=== PATIENT | female | born 1985 | race African-American/Black ===

== ENCOUNTER 2021-02-01 01:46 | Emergency (ER) | payer OTHER, SELFPAY ==
[2021-02-01 01:55] VITALS: BP 137/83; PULSE 76; RESP 17; TEMP 37; O2SAT 100; BMI 38.2
--- NOTE | 2021-02-01 04:29 | ED_ITS ---
HPI - Headache General Chief Complaint: Headache Stated Complaint: headach/nausea since infusion yesterday Time Seen by Provider: 02/01/21 04:20 Mode of arrival: Ambulatory Limitations: no limitations History of Present Illness HPI Narrative: This is a 35-year-old female comes emergency department with complaint headache some nausea and left hand pain starting after iron infusion yesterday. Patient states she typically gets a headache after her iron infusions and takes ibuprofen and they resolve but this 1 has been persistent. She has not had vomiting but has had some mild nausea. She has had some discomfort in the back side of her hand she states there was a small bubble immediately afterward but has resolved. She has not appreciated any increased swelling in her upper extremity since then. Patient has not had any fevers or chills. No cold cough or congestion. She does feel a bit achy in her chest but denies any generalized body aches or bone pain. Patient has had any changes today bowel movements such as diarrhea constipation. No urinary symptoms. No rashes or skin changes. No fevers. Patient states she is on oral contraceptives for heavy periods. She states she is receiving iron infusions for chronic anemia she was on oral iron supplementation but was not improving fast enough secondary to her being at 89 ir and being in the [place] they 1 improvement. Patient has had 4 or 5 infusions total. Related Data Home Medications Medication Instructions Recorded Confirmed ferrous sulfate 325 mg (65 mg 325 mg PO Q OTHER DAY 01/04/21 01/04/21 iron) capsule,extended release fluoride (sodium) 1.1 % dental gel 1 ea DAILY 01/04/21 01/04/21 (PreviDent) norethindrone acetate 1.5 1 tab PO DAILY 01/04/21 01/04/21 mg-ethinyl estradiol 30 mcg tablet (Loestrin) Allergies Allergy/AdvReac Type Severity Reaction Status Date / Time pseudoephedrine Allergy Unknown Palpitation Verified 01/04/21 11:18 [From Jo] s avocado AdvReac Unknown Photosensit Verified 01/04/21 11:21 ivity Review of Systems Review of Systems ROS Unobtainable: All systems reviewed & are unremarkable except as noted in HPI and below Patient History Social History Smoking Status: Current every day smoker Smoking Status: Current every day smoker alcohol intake frequency: a few times a week Substance Use Type: does not use Exam Narrative Exam Narrative: GENERAL: Alert and oriented x three, female in mild distress. HEENT: Head normocephalic, atraumatic, EOMI, pupils reactive, face symmetric, moist mucous membranes NECK: Supple, full range of motion CARDIOVASCULAR: Regular rate and rhythm without murmurs, rubs or gallops. RESPIRATORY: Breath sounds equal bilaterally, no wheezes rales or rhonchi. ABDOMEN: Soft, nontender. Normoactive bowel sounds all 4 quadrants. No guarding or rebound, rigidity, no mass : No CVA tenderness EXTREMITIES: Normal range of motion, no clubbing or edema. Neurovascularly inta ct. No warmth, erythema or swelling. NEUROLOGICAL: Cranial nerves II through XII grossly intact. Moving all extremities SKIN: Warm, dry, no petechiae, no rashes or lesions. Initial Vital Signs Initial Vital Signs: Vital Signs Temperature 98.6 F 02/01/21 01:55 Pulse Rate 76 02/01/21 01:55 Respiratory Rate 17 02/01/21 01:55 Blood Pressure 137/83 02/01/21 01:55 Pulse Oximetry 100 02/01/21 01:55 Course Orders Ordered: Discontinued Medications Ketorolac Tromethamine (Ketorolac 30 Mg/Ml Vial) 30 mg IM NOW ONE Stop: 02/01/21 04:48 Last Admin: 02/01/21 04:56 Dose: 30 mg Documented by: JEREMY Ondansetron HCl (Ondansetron 4 Mg Odt) 4 mg SL NOW ONE Stop: 02/01/21 04:48 Last Admin: 02/01/21 04:56 Dose: 4 mg Documented by: JEREMY Ondansetron HCl (Ondansetron 4 Mg Odt Prepack) 1 bottle MISC SEEINSTR ONE Stop: 02/01/21 05:31 Last Admin: 02/01/21 05:34 Dose: 1 bottle Documented by: JEREMY Vital Signs Vital signs: Vital Signs - 8 hr 02/01/21 01:55 02/01/21 05:52 Temperature 98.6 F Pulse Rate 76 66 Respiratory Rate 17 16 Blood Pressure 137/83 108/65 Pulse Oximetry 100 100 MDM - Headache MDM Narrative Medical decision making narrative: This is a 35-year-old female who had developed headache, as well some discomfort in her hand and arm and some nausea after her infusion of iron yesterday. She has had persistent symptoms that have not completely resolved. No anaphylactic symptoms. No fever. She has not had generalized muscle aches or bony discomfort. Suspect she is having continued reaction. She is given dose of Toradol and Zofran we did discuss IV fluids and IV access but patient and I discussed she is a difficult stick and at this time with shared decision making she elects to defer. We did discuss if she is feeling much worse having any red flag symptoms are generalized bony pain or ache she does need labs and further workup. Patient feels comfortable with this plan. Discharge Plan Departure Patient Disposition: Home Clinical Impression: Infusion reaction Activity Restrictions/Additional Instructions: Follow-up with your physician. I suspect you have had an iron infusion reaction. You may continue with ibuprofen up to 800 mg every 8 hours and/or Tylenol up to a 1000 mg every 8 hours as needed. You may take Zofran every 6 hours as needed. Please return for fevers, new chest pain, shortness of breath, lightheadedness or passing out, bone pain, persistent vomiting or other new or concerning symptoms. Prescriptions: No Action norethindrone ac-eth estradiol [Loestrin 1.08/14 (21)] 1.5-30 mg-mcg Tablet 1 tab PO DAILY 0RF fluoride (sodium) [PreviDent] 1.1 % Gel 1 ea DAILY 0RF ferrous sulfate 325 mg (65 mg iron) Capsule, Extended Release 325 mg PO Q OTHER DAY 0RF Referrals: [facility] [Primary Care Provider] -
[2021-02-01] MEDS: ONDANSETRON 4 MG ODT SL (04:56)
[2021-02-01] MEDS: KETOROLAC 30 MG/ML VIAL IM (04:56)
[2021-02-01] MEDS: ONDANSETRON 4 MG ODT PREPACK 1 BOTTLE MISC (05:34)
[2021-02-01 05:52] VITALS: BP 108/65; PULSE 66; RESP 16; O2SAT 100
== END 2021-02-01 05:53 | disposition home or self-care (01) ==
PROVIDERS: Emergency Provider Emergency Medicine
DX: T80.89XA Other complications following infusion, transfusion and therapeutic injection, initial encounter (principal); R51.9 Headache, unspecified; R11.0 Nausea; M79.642 Pain in left hand
CPT/HCPCS: 96372; 99283; J1885

== ENCOUNTER 2021-04-20 19:37 | Emergency (ER) | payer OTHER, SELFPAY ==
[2021-04-20 19:50] VITALS: BP 139/88; PULSE 72; RESP 18; TEMP 36.1; O2SAT 100
--- NOTE | 2021-04-20 21:25 | ED.HA ---
HPI - Headache General Chief Complaint: Headache Stated Complaint: COVID+/Facial/Head/Sinus Pain Time Seen by Provider: 04/20/21 21:25 Mode of arrival: Ambulatory History of Present Illness HPI Narrative: Patient is a 35-year-old female who has known diagnosis of COVID. She said that she was diagnosed about 7 days ago she is vaccinated. Her cough and other symptoms started getting better however she has had worsening persistent headache and facial pressure. She said she had a temperature this morning of 101 but has not taken any Tylenol or ibuprofen all day today she has headache is gone little bit worse. She has some neck discomfort but seems to be moving easily. She has significant pressure behind her eye specifically her left 1 pressure on her teeth. Was concern for possible concurrent sign sinus infection Related Data Home Medications Medication Instructions Recorded Confirmed ferrous sulfate 325 mg (65 mg 325 mg PO Q OTHER DAY 01/04/21 01/04/21 iron) capsule,extended release fluoride (sodium) 1.1 % dental gel 1 ea DAILY 01/04/21 01/04/21 (PreviDent) norethindrone acetate 1.5 1 tab PO DAILY 01/04/21 01/04/21 mg-ethinyl estradiol 30 mcg tablet (Loestrin) Allergies Allergy/AdvReac Type Severity Reaction Status Date / Time pseudoephedrine Allergy Unknown Palpitation Verified 01/04/21 11:18 [From Jo] s avocado AdvReac Unknown Photosensit Verified 01/04/21 11:21 ivity Review of Systems Review of Systems Narrative: GENERAL: see HPI HEENT: See HPI RESPIRATORY: Denies dyspnea, cough, wheezing, hemoptysis, sputum. CARDIOVASCULAR: Denies chest pain, palpitations, orthopnea, edema GASTROINTESTINAL: Denies nausea, vomiting, abdominal pain, diarrhea, constipation, melena. : Denies dysuria, frequency, incontinence, hematuria, urinary retention, flank pain. MUSCULOSKELETAL: Denies weakness, joint pain, or bony pain SKIN: No rash, no erythema, no pruritus NEUROLOGIC: Denies weakness, dizziness, headache, numbness, change in speech, confusion PSYCHIATRIC: No concerning psychosocial issues. 12 point review of systems is negative except for those stated above and HPI Patient History Social History Smoking Status: Current every day smoker Smoking Status: Current every day smoker alcohol intake frequency: a few times a week Substance Use Type: does not use Exam Initial Vital Signs Initial Vital Signs: Vital Signs Temperature 97 F L 04/20/21 19:50 Pulse Rate 72 04/20/21 19:50 Respiratory Rate 18 04/20/21 19:50 Blood Pressure 139/88 04/20/21 19:50 Pulse Oximetry 100 04/20/21 19:50 GENERAL: Awake alert 35-year-old female HEENT: Head atraumatic,EOMI, pupils reactive, face symmetric, [moist] mucous membranes, no meningeal signs, tender over maxillary and frontal sinuses no significant swelling CARDIOVASCULAR: Regular rate and rhythm without murmurs, rubs or gallops. RESPIRATORY: Breath sounds equal bilaterally, no wheezes rales or rhonchi. ABDOMEN: Soft, nontender. Normoactive bowel sounds all 4 quadrants. No guarding or rebound. EXTREMITIES: Normal range of motion, no clubbing or edema. Neurovascularly intact NEUROLOGICAL: Alert and oriented x4. Moving all extremity SKIN: Warm, dry, no laceration, no petechiae, no rashes or lesions. Course Orders Ordered: Discontinued Medications Ketorolac Tromethamine (Ketorolac 30 Mg/Ml Vial) 30 mg IM NOW ONE Stop: 04/20/21 21:44 Last Admin: 04/20/21 21:54 Dose: 30 mg Documented by: ARABELLA Vital Signs Vital signs: Vital Signs - 8 hr 04/20/21 22:48 Pulse Rate 64 Respiratory Rate 18 Blood Pressure 132/84 Pulse Oximetry 99 MDM - Headache MDM Narrative Medical decision making narrative: The patient the is having ongoing headache with known COVID infection. At this time difficult to say if she has a concurrent sinus infection she. Currently her is infection has only been going on for 7 days so does not actually warrant antibiotic treatment even if it is a sinus infection. His at this time I recommend waiting to see if her COVID symptoms is improved. Today she actually did not take any pain medication, which may be why her pain has gotten worse this evening. Discharge Plan Departure Patient Disposition: Home Clinical Impression: COVID-19 Instructions: DI for Headache, DI for COVID-19 (Suspected or Confirmed ) Activity Restrictions/Additional Instructions: *You have been diagnosed with COVID with headache *What to do: At this time I think ear headache and sinus pressure is probably from COVID there than concurrent sinus infection. However please continue to monitor if still having fevers greater than 101 and worsening sinus pressure on day 10. Please return to ED or see your primary care provider *Continue to take medications as directed Ibuprofen 800 mg every 8 hours if needed for [id number] Tylenol 1000 mg every 6 hours if needed for [id number] *Follow up with your primary care provider in 2-3 days or call [phone] *Return to ER if you should have a increasing pain persistent fever, persistent facial pressure or any new, worsening or concerning symptoms Prescriptions: No Action norethindrone ac-eth estradiol [Loestrin 1.08/14 (21)] 1.5-30 mg-mcg Tablet 1 tab PO DAILY 0RF fluoride (sodium) [PreviDent] 1.1 % Gel 1 ea DAILY 0RF ferrous sulfate 325 mg (65 mg iron) Capsule, Extended Release 325 mg PO Q OTHER DAY 0RF Referrals: [facility] [Primary Care Provider] -
[2021-04-20] MEDS: KETOROLAC 30 MG/ML VIAL IM (21:54)
[2021-04-20 22:48] VITALS: BP 132/84; PULSE 64; RESP 18; O2SAT 99
== END 2021-04-20 22:48 | disposition home or self-care (01) ==
PROVIDERS: Emergency Provider Emergency Medicine
DX: U07.1 COVID-19 (principal); F17.200 Nicotine dependence, unspecified, uncomplicated
CPT/HCPCS: 96372; 99283; J1885

== ENCOUNTER 2022-02-26 18:46 | Emergency (ER) | payer OTHER, SELFPAY ==
[2022-02-26 19:18] VITALS: BP 143/94; PULSE 82; RESP 16; TEMP 36.7; O2SAT 100; BMI 41.0
--- NOTE | 2022-02-26 19:22 | DI.RAD.S_ITS ---
PROCEDURE: XR CHEST 1V INDICATIONS: Shortness of breath TECHNIQUE: One view of the chest was acquired. COMPARISON: None. FINDINGS: Surgical changes and devices: None. Lungs and pleura: Lungs are clear. No pleural effusions or pneumothorax. Mediastinum: Mediastinal contours appear normal. Heart size is normal. Bones and chest wall: No suspicious bony lesions. Overlying soft tissues appear unremarkable. IMPRESSION: 1. No acute cardiopulmonary disease. Dictated by: Sahil Pagan M.D. on 02/26/2022 at 20:17 Approved by: Sahil Pagan M.D. on 02/26/2022 at 20:21
[2022-02-26 19:48] LABS: Add Manual Diff / Slide Review NO; Basophils Absolute Auto 100 /uL (0-100); Basophils Percent Auto 1.2 % (0-2); Eosinophils Absolute Auto 100 /uL (0-450); Eosinophils Percent Auto 1.4 % (2-4); Hematocrit 36.3 % (36-46); Hemoglobin 12.2 g/dL (12.0-16.0); Lymphocytes Absolute Auto 1300 /uL (1100-4500); Lymphocytes Percent Auto 23.8 % (25-40); Mean Corpuscular HGB Conc 33.7 % (30-36); Mean Corpuscular Hemoglobin 26.2 PG (26-34); Mean Corpuscular Volume 77.8 fL (80-100); Monocytes Absolute Auto 700 /uL (0-900); Monocytes Percent Auto 11.8 % (3-14); Neutrophils Absolute Auto 3400 /uL (1500-7000); Neutrophils Percent Auto 61.8 % (50-75); Platelet Count 412 X10^3/uL (150-400); Red Blood Cell Count 4.67 X10^6/uL (4.0-5.2); Red Cell Distribution Width 15.1 % (11.6-14.8); White Blood Cell Count 5.5 X10^3/uL (4.5-11.0)
[2022-02-26 19:51] LABS: INR 1.2 (0.9-1.3); Prothrombin Time 13.3 SECONDS (10.1-12.7)
[2022-02-26 19:54] LABS: Lactate (Lactic Acid) 0.6 mmol/L (0.7-2.1)
[2022-02-26 19:55] LABS: Alanine Aminotransferase 25 IU/L (<35); Albumin 4.4 g/dL (3.5-5.0); Albumin Globulin Ratio 1.1 (1.0-2.8); Alkaline Phosphatase 83 U/L (38-126); Aspartate Aminotransferase 23 IU/L (14-36); BUN Creatinine Ratio 22.2 (6-22); Bilirubin Total 0.2 mg/dL (0.2-1.3); Blood Urea Nitrogen 16 mg/dL (7-17); Calcium 9.2 mg/dL (8.4-10.2); Carbon Dioxide 22 mmol/L (22-32); Chloride 104 mmol/L (98-107); Estimated Glomerular Filt Rate > 60 mL/min (>60); Globulin 4.1 g/dL (1.7-4.1); Glucose 101 mg/dL (70-100); HEMOLYSIS < 15 (0-50); Potassium 3.3 mmol/L (3.4-5.1); Sodium 138 mmol/L (137-145); Total Protein 8.5 g/dL (6.3-8.2)
[2022-02-26 20:07] LABS: NT-proBNP (BNP-Adult 18+) < 11 pg/mL (<125); Troponin I < 0.012 ng/mL (0.01-0.034)
[2022-02-26 20:21] LABS: Influenza A - CEPHEID Flu A NEGATIVE (NEGATIVE); Influenza B - CEPHEID Flu B NEGATIVE (NEGATIVE); Respiratory Syncytial Virus Negative (Negative)
[2022-02-26 20:22] LABS: COVID-19 CEPHEID 4-PLEX PCR POSITIVE (Negative)
--- NOTE | 2022-02-26 23:30 | PC.NURSE ---
Resting quietly in NAD - no needs voiced - PWD with respirations equal and unlabored bilaterally
--- NOTE | 2022-02-27 00:12 | ED.URI ---
HPI - URI/Sore Throat General Chief Complaint: Upper Respiratory Symptoms Stated Complaint: Poss pneumonia Time Seen by Provider: 02/27/22 00:07 Source: patient Mode of arrival: Ambulatory History of Present Illness HPI Narrative: Patient states awoke yesterday morning, Saturday feeling weak and feverish body aches and chills. No vomiting or diarrhea. No dyspnea. Patient is COVID vaccinated. Denies any sick contacts. Patient in no distress lying in bed at this time. Vital signs reviewed. No hypoxia. No tachypnea or tachycardia Related Data Home Medications Medication Instructions Recorded Confirmed ferrous sulfate 325 mg (65 mg 325 mg PO Q OTHER DAY 01/04/21 05/16/21 iron) capsule,extended release fluoride (sodium) 1.1 % dental gel 1 ea DAILY 01/04/21 05/16/21 (PreviDent) norethindrone acetate 1.5 1 tab PO DAILY 01/04/21 05/16/21 mg-ethinyl estradiol 30 mcg tablet (Loestrin) Allergies Allergy/AdvReac Type Severity Reaction Status Date / Time pseudoephedrine Allergy Unknown Palpitation Verified 01/04/21 11:18 [From Sudafed] s avocado AdvReac Unknown Photosensit Verified 01/04/21 11:21 ivity Review of Systems Review of Systems Narrative: GENERAL: Positive chills, fatigue, malaise, fever, negative sweats. HEENT: negative sinus pain, ear pain, sore throat RESPIRATORY: negative dyspnea, positive cough CARDIOVASCULAR: negative chest pain, palpitations GASTROINTESTINAL: negative nausea, vomiting, abdominal pain : negative dysuria, frequency, hematuria MUSCULOSKELETAL: negative muscle or bony pain SKIN: negative rash, skin lesions NEUROLOGIC: negative weakness, numbness ROS Unobtainable: All systems reviewed & are unremarkable except as noted in HPI and below Patient History Social History Smoking Status: Current every day smoker Smoking Status: Current every day smoker alcohol intake frequency: a few times a week Substance Use Type: does not use Exam Narrative Exam Narrative: GENERAL: in no distress, not toxic not dyspneic HEAD: Normocephalic. EYES: Pupils equal round No scleral icterus. ENT: Mucous membranes moist. NECK: Trachea midline. CARDIOVASCULAR: Regular rate and rhythm without murmurs RESPIRATORY: Clear to auscultation. Breath sounds equal bilaterally. No wheezes, rales, or rhonchi. GASTROINTESTINAL: Abdomen soft, non-tender EXTREMITIES: No gross deformities. BACK: No flank tenderness. NEURO: AOx4. SKIN: Warm and dry PSYCH: Not anxious, is cooperative Initial Vital Signs Initial Vital Signs: Vital Signs Temperature 98.1 F 02/26/22 19:18 Pulse Rate 82 02/26/22 19:18 Respiratory Rate 16 02/26/22 19:18 Blood Pressure 143/94 H 02/26/22 19:18 Pulse Oximetry 100 02/26/22 19:18 Oxygen Delivery Method 02/26/22 19:18 Course Course Course Narrative: No new issues during course of stay Orders Ordered: ED Orders 02/26/22 19:22 XR chest 1V Stat Measure peak expiratory flow ONCE RT Consult Eval and Treat NOW 02/26/22 19:28 Complete Blood Count AUTO DIFF Stat Comprehensive Metabolic Panel Stat Covid-19 + FLU A/B + RSV - PCR Stat Lactate (Lactic Acid) Stat NT-proBNP (BNP-Adult 18+) Stat Prothrombin Time INR Stat Troponin I Stat Reevaluation(s) Reevaluation #1: Reviewed results with patient. Patient in no respiratory distress. Patient is with a . Understands to quarantine 10 days. Return precautions reviewed with her. Not requiring supplemental oxygen no hypoxia or tachypnea. She desires discharge home. Time: 00:15 Vital Signs Vital signs: Vital Signs - 8 hr 02/27/22 00:30 Pulse Rate 78 Respiratory Rate 18 Blood Pressure 143/107 H Pulse Oximetry 98 Oxygen Delivery Method Room Air MDM - URI/Sore Throat Differential Diagnosis Differential diagnosis: Likely upper respiratory infection, viral infection, bronchitis and influenza (COVID) Lab Data Result diagrams: 02/26/22 19:28 02/26/22 19:28 Labs: Lab Results 02/26/22 02/26/22 02/26/22 Range/Units 19:28 19:28 19:28 WBC 5.5 (4.5-11.0) X10^3/uL RBC 4.67 (4.0-5.2) X10^6/uL Hgb 12.2 (12.0-16.0) g/dL Hct 36.3 (36-46) % MCV 77.8 L (80-100) fL MCH 26.2 (26-34) PG MCHC 33.7 (30-36) % RDW 15.1 H (11.6-14.8) % Plt Count 412 H (150-400) X10^3/uL Neut % (Auto) 61.8 (50-75) % Lymph % (Auto) 23.8 L (25-40) % [place] % (Auto) 11.8 (3-14) % Eos % (Auto) 1.4 L (2-4) % Baso % (Auto) 1.2 (0-2) % Neut # (Auto) 3400 (6744-7155) /uL Lymph # (Auto) 1300 (4209-3504) /uL [place] # (Auto) 700 (0-900) /uL Eos # (Auto) 100 (0-450) /uL Baso # (Auto) 100 (0-100) /uL PT 13.3 H (10.1-12.7) SECONDS INR 1.2 (0.9-1.3) Sodium 138 (137-145) mmol/L Potassium 3.3 L (3.4-5.1) mmol/L Chloride 104 (98-107) mmol/L Carbon Dioxide 22 (22-32) mmol/L BUN 16 (7-17) mg/dL Creatinine 0.72 (0.52-1.04) mg/dL Estimated GFR > 60 (>60) mL/min BUN/Creatinine Ratio 22.2 H (6-22) Glucose 101 H (70-100) mg/dL Lactate (0.7-2.1) mmol/L Calcium 9.2 (8.4-10.2) mg/dL Total Bilirubin 0.2 (0.2-1.3) mg/dL AST 23 (14-36) IU/L ALT 25 (<35) IU/L Alkaline Phosphatase 83 (38-126) U/L Troponin I < 0.012 (0.01-0.034) ng/mL NT-Pro-B Natriuret Pep < 11 (<125) pg/mL Total Protein 8.5 H (6.3-8.2) g/dL Albumin 4.4 (3.5-5.0) g/dL Globulin 4.1 (1.7-4.1) g/dL Albumin/Globulin Ratio 1.1 (1.0-2.8) SARS-CoV-2 (PCR) (Negative) Influenza A (RT-PCR) (NEGATIVE) Influenza B (RT-PCR) (NEGATIVE) RSV (PCR) (Negative) 02/26/22 02/26/22 Range/Units 19:28 19:28 WBC (4.5-11.0) X10^3/uL RBC (4.0-5.2) X10^6/uL Hgb (12.0-16.0) g/dL Hct (36-46) % MCV (80-100) fL MCH (26-34) PG MCHC (30-36) % RDW (11.6-14.8) % Plt Count (150-400) X10^3/uL Neut % (Auto) (50-75) % Lymph % (Auto) (25-40) % [place] % (Auto) (3-14) % Eos % (Auto) (2-4) % Baso % (Auto) (0-2) % Neut # (Auto) (2947-3521) /uL Lymph # (Auto) (0472-9883) /uL [place] # (Auto) (0-900) /uL Eos # (Auto) (0-450) /uL Baso # (Auto) (0-100) /uL PT (10.1-12.7) SECONDS INR (0.9-1.3) Sodium (137-145) mmol/L Potassium (3.4-5.1) mmol/L Chloride (98-107) mmol/L Carbon Dioxide (22-32) mmol/L BUN (7-17) mg/dL Creatinine (0.52-1.04) mg/dL Estimated GFR (>60) mL/min BUN/Creatinine Ratio (6-22) Glucose (70-100) mg/dL Lactate 0.6 L (0.7-2.1) mmol/L Calcium (8.4-10.2) mg/dL Total Bilirubin (0.2-1.3) mg/dL AST (14-36) IU/L ALT (<35) IU/L Alkaline Phosphatase (38-126) U/L Troponin I (0.01-0.034) ng/mL NT-Pro-B Natriuret Pep (<125) pg/mL Total Protein (6.3-8.2) g/dL Albumin (3.5-5.0) g/dL Globulin (1.7-4.1) g/dL Albumin/Globulin Ratio (1.0-2.8) SARS-CoV-2 (PCR) Positive H (Negative) Influenza A (RT-PCR) Flu a negative (NEGATIVE) Influenza B (RT-PCR) Flu b negative (NEGATIVE) RSV (PCR) Negative (Negative) Imaging Data Chest x-ray: Radiologist's Impression: [address] [address] XRay Report Signed Patient: Deborah Castillo MR#: [id number] : 1985 Acct:[id number] Age/Sex: 36 / F Date of Service: 02/26/22 Loc: ED Accession Number: [id number] ?? Procedure: XR chest 1V Ordering Provider: Pillo Damian MD PROCEDURE:? XR CHEST 1V ? INDICATIONS:? Shortness of breath ? TECHNIQUE:? One view of the chest was acquired.? ? COMPARISON:? None. ? FINDINGS:? ? Surgical changes and devices:? None.? ? Lungs and pleura:? Lungs are clear.? No pleural effusions or pneumothorax.? ? Mediastinum:? Mediastinal contours appear normal.? Heart size is normal.? ? Bones and chest wall:? No suspicious bony lesions.? Overlying soft tissues appear unremarkable.? ? IMPRESSION:? ? 1.? No acute cardiopulmonary disease. ? ? ? Dictated by: Sahil Pagan M.D. on 02/26/2022 at 20:17 ? ? Approved by: Sahil Pagan M.D. on 02/26/2022 at 20:21 ? [facility] Narrative Medical decision making narrative: Appropriate for discharge home. Exam and laboratory studies and imaging are reassuring. Not requiring supplemental oxygen. No dyspnea hypoxia or tachypnea. Return precautions reviewed with patient. Quarantine instructions provided. She is had COVID in the past. Work note provided. Discharge Plan Departure Patient Disposition: Home Clinical Impression: COVID-19 Instructions: DI for COVID-19 (Suspected or Confirmed ) Activity Restrictions/Additional Instructions: Please see family doctor in a week for re-evaluation. You must quarantine 10 days from starting today. Keep well hydrated. May take Tylenol ibuprofen for pain and fever. Return if worse if any questions or concerns or if any trouble breathing. Prescriptions: No Action norethindrone ac-eth estradiol [Loestrin 1.08/14 (21)] 1.5-30 mg-mcg Tablet 1 tab PO DAILY fluoride (sodium) [PreviDent] 1.1 % Gel 1 ea DAILY ferrous sulfate 325 mg (65 mg iron) Capsule, Extended Release 325 mg PO Q OTHER DAY Referrals: [facility] [Primary Care Provider] - Stand Alone Forms: Work Release Note Visit Report Forms: Patient Portal/API
[2022-02-27 00:30] VITALS: BP 143/107; PULSE 78; RESP 18; O2SAT 98
== END 2022-02-27 00:46 | disposition home or self-care (01) ==
PROVIDERS: Emergency Provider Emergency Medicine
DX: U07.1 COVID-19 (principal); R06.02 Shortness of breath
CPT/HCPCS: 0241U; 36415; 71045; 80053; 83605; 83880; 84484; 85025; 85610; 99283; 99284

== ENCOUNTER 2022-04-30 09:00 | Outpatient (RCR) | payer OTHER, SELFPAY ==
--- NOTE | 2022-03-26 18:11 | PT.OIE ---
Current Diagnoses Pain in right ankle and joints of right foot (03/26/22) Difficulty in walking, not elsewhere classified (03/26/22) Unspecified lack of coordination (03/26/22) Weakness (03/26/22) Visit Care Team Role Provider Type [facility] Primary Care Provider Non-Staff Specialty: Medical Address: [address] [place] [address], [phone] Email: Attending Provider Family Provider Referring Provider Specialty: Address: Phone: Fax: Email: Physical Therapy Initial Evaluation PT-OP-A Visit Information Start: 03/21/22 13:35 Freq: Status: Active Protocol: Document 03/26/22 08:17 [facility] (Rec: 03/26/22 09:01 [facility] [id number]) Out-Patient Physical Therapy Visit Information Visit Information Visit Type Initial Evaluation Visit Start Time 08:18 Visit Stop Time 09:00 Total Visit Minutes 42 Visit Number 1 Number of AUTOMOBILE PAINTER Visits 0 PT-OP-B Current Condition Start: 03/21/22 13:35 Freq: Status: Active Protocol: Document 03/26/22 08:17 [facility] (Rec: 03/26/22 09:01 [facility] [id number]) Current Condition History of Current Condition Onset Date September Current Complaints R ankle History of Current Condition 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 It was a hard buckle and she is unsure which way ankle rolled. 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 PT is hard for her right now .S he is not an avid runner, more of a swimmer. Tried to run on it and about 1/2 mile in and she was unable to push through it. After that it was painful and swollen. She is more concerned if her plane goes down and she has to be able to run. Sometimes her ankle hurts randomly during the day and often takes ibuprfoen and uses brenda wrap. Pt reports she has a slight tear in R MCL. Calls herself fairly clumsy. Prior Treatments and Tests xray- no breaks Treatment Goals Patient/Caregiver Goals be able to run, do quick pivoting (agility for PT), walk long distance, back to being physical PT-OP-C Subjective Start: 03/21/22 13:35 Freq: Status: Active Protocol: Document 03/26/22 08:17 [facility] (Rec: 03/26/22 09:01 [facility] [id number]) Patient Questionnaires Foot & Ankle Ability Measure- ADL and Sports FAAM-ADL Score 69/84 FAAM-Sport Score 7/ Lower Extremity Functional Scale LEFS Score 58/80 OP-PT Pain Assessment Location R ankle Pain Location Details med ankle and foot and ant ankle Intensity 7 Scale Used Numeric (0 - 10) Description Aching Frequency Intermittent Pain Duration once off it (lasts until takes ibuprofen) Variations/Patterns tingle under arch Pain Aggravating Factors Standing,Walking Other Pain Aggravating Factors stand>30 min, running, push off Pain Alleviating Factors Cold,Massage,Elevation Other Pain Alleviating Factors compression PT-OP-D Balance Start: 03/21/22 13:35 Freq: Status: Active Protocol: Document 03/26/22 08:17 [facility] (Rec: 03/26/22 09:01 [facility] [id number]) Balance Tests Single Limb Standing Single Limb- Right >30 sec deviations mult & opp hip drop Single Limb- Left >30 sec PT-OP-F Manual Assessment Start: 03/21/22 13:35 Freq: Status: Active Protocol: Document 03/26/22 08:17 [facility] (Rec: 03/26/22 09:01 [facility] [id number]) Manual Assessments Soft Tissue Assessment Soft Tissue Mobility Assessment tenderness to achilles, 1st MT , med arch, tib distally Joint Mobility Assessment Joint Mobility Assessment dec talus and tib post glide PT-OP-G Mobility & Gait Start: 03/21/22 13:35 Freq: Status: Active Protocol: Document 03/26/22 08:17 [facility] (Rec: 03/26/22 09:01 [facility] [id number]) OP Gait Assessment Comments Gait Comments dec push off RLE in walk and run PT-OP-K Range of Motion Start: 03/21/22 13:35 Freq: Status: Active Protocol: Document 03/26/22 08:17 [facility] (Rec: 03/26/22 09:01 [facility] [id number]) Ankle and Foot Goniometric Range of Motion Ankle and Foot Right Active Dorsiflexion with Knee Flexed 5 Dorsiflexion with Knee Extended 0 Plantarflexion 62 Inversion 30 Eversion 20 Comments pain w/eversion, PF, DF .5 cm navicular drop Left Active Dorsiflexion with Knee Flexed 6 Dorsiflexion with Knee Extended 2 Plantarflexion 59 Inversion 26 Eversion 30 PT-OP-L Special Tests Start: 03/21/22 13:35 Freq: Status: Active Protocol: Document 03/26/22 08:17 [facility] (Rec: 03/26/22 09:01 [facility] [id number]) Special Tests Foot/Ankle Special Tests Talor Tilt Test Results neg Anterior Draw Test Results neg PT-OP-M Strength Start: 03/21/22 13:35 Freq: Status: Active Protocol: Document 03/26/22 08:17 [facility] (Rec: 03/26/22 09:01 [facility] [id number]) Hip Strength Hip Manual Muscle Testing Right Flexion (L2) 5 Normal Extension (S1) 3+ Fair+ Abduction 4 Good External Rotation 4+ Good+ Internal Rotation 5 Normal Left Flexion (L2) 5 Normal Extension (S1) 3+ Fair+ Abduction 4+ Good+ External Rotation 5 Normal Internal Rotation 5 Normal Knee Strength Knee Manual Muscle Testing Right Flexion (S2) 5 Normal Extension (L3) 4+ Good+ Left Flexion (S2) 5 Normal Extension (L3) 5 Normal Ankle/Foot Strength Ankle and Foot Manual Muscle Testing Right Dorsiflexion (L4) 3+ Fair+ Plantarflexion (S1) 3+ Fair+ Inversion 4 Good Eversion (S1) 3+ Fair+ Comments 3 heel raises-pain Left Dorsiflexion (L4) 5 Normal Plantarflexion (S1) 5 Normal Inversion 5 Normal Eversion (S1) 5 Normal Comments 20 heel raises Toe Strength Toe Manual Muscle Testing Right Great Toe Flexion 4 Good Extension 4+ Good+ Comments pain w/flex Left Great Toe Flexion 5 Normal Extension 5 Normal PT-OP-Q Treatments Start: 03/21/22 13:35 Freq: Status: Active Protocol: Document 03/26/22 08:17 [facility] (Rec: 03/26/22 09:01 [facility] [id number]) Therapeutic Exercises Standing Exercises calf stretch Standing Exercise Name fwd lean 1. gastroc 2. soleus Side bilateral Reps/Minutes 30 sec ea PT-OP-T Assessment and Plan Start: 03/21/22 13:35 Freq: Status: Active Protocol: Document 03/26/22 08:17 [facility] (Rec: 03/26/22 09:01 [facility] [id number]) Physical Therapy Assessment Rehab Potential Rehabilitation Potential Good Evaluation Complexity Number of Personal Factors/Comorbidities 1-2 Number of Body Systems Impaired 4 or More Clinical Presentation at Evaluation Evolving Impairments Impairments Activity Tolerance,Balance, Coordination,Edema,Functional Activities,Functional Mobility ,Gait,Pain,Posture,ROM,Soft Tissue Mobility,Strength Goals activities Short Term Goal (STG) Pt will be able to stand as needed and walk as needed without pain inc greater than 2/10 STG Duration 05/16/22 Usp Goal (LTG) Pt iwll be able to return to running and agility as needed for PT and possible complications at her job along w/for fitness. LTG Duration 06/18/22 strength Short Term Goal (STG) Pt will be indep w/HEP STG Duration 05/15/22 Confectionery Cooker Goal (LTG) Pt will score 5/5 on all MMT of BLEs to show improved stability in order to do required activiteis for PT at work. LTG Duration 06/18/22 ROM Short Term Goal (STG) Pt will report no pain w/AROM into any plane of R ankle. STG Duration 05/16/22 Usp Goal (LTG) Pt will have at least DF to 10 deg knee flex B and 5 deg knee ext B to improve ability for gait mechanics. LTG Duration 06/18/22 balance Usp Goal (LTG) Pt will stand SLS for 30 sec on RLE w/o deviations or hip drop. LTG Duration 06/18/22 FAAM Impairment ADL 69/84; sports 10/12 Short Term Goal (STG) Pt will score at least 78 on ADL portion of FAAM scale to show improved functional ability. STG Duration 05/16/22 Confectionery Cooker Goal (LTG) Pt will score at least 28on sports portion of FAAM scale to show improved functional ability. LTG Duration 06/18 Assessment Summary Assessment Pt presents w/chronic R med ankle and foot pain after injuring her ankle where it gave out on gravel in September. She has cont to be unable to run, stand or walk for extended time d/t pain and swelling of R foot/ankle. She does have B compenstated supinated foot type w/arch flattening B. She has impaired ROM of R ankle likely d/t calf and plantar fascia tightness along w/joint immobility of R ankle. She would benefit from skilled PT to help her return to painfree daily activity along w/return to her typical fitness activities including her [employer] PT regime without pain. Physical Therapy Plan Frequency and Duration Frequency of Treatment 1-2x/wk Duration of treatment (weeks) 12 Plan of Care Start Date 03/26/22 Plan of Care End Date 06/18/22 Therapeutic Interventions Therapeutic Interventions Balance Training,Gait Training ,Home Exercise Program,Joint Mobilizations,Manual Therapy, Neuromuscular Re-education, Orthotic/Prosthetic Management ,Patient/Caregiver Education, Self-Care/Home Management,Soft Tissue Mobilization,Taping, Therapeutic Activities, Therapeutic Exercises Modalities Cold Pack/Ice Massage,Electric Stimulation,Hot Packs, Infrared Therapy,Iontophoresis ,Ultrasound Other Therapeutic Interventions dexamethasone for ionto Next Visit Focus/Plan Next Note Type Treatment Note Next Visit Plan laser to med ankle, Possibly US plused, consider Ionto once POC returns, review exercises , give tband 4 way exercises, manual to R ankle mobility
--- NOTE | 2022-03-26 18:11 | PT.OPPOC ---
Physical, Occupational & Speech Therapy At [facility] Current Diagnoses Pain in right ankle and joints of right foot (03/26/22) Difficulty in walking, not elsewhere classified (03/26/22) Unspecified lack of coordination (03/26/22) Weakness (03/26/22) Visit Care Team Role Provider Type [facility] Primary Care Provider Non-Staff Specialty: Medical Address: [address] [place] [address], [id number] Email: Attending Provider Family Provider Referring Provider Specialty: Address: Phone: Fax: Email: Plan Of Care PT-OP-T Assessment and Plan Start: 03/21/22 13:35 Freq: Status: Active Protocol: Document 03/26/22 08:17 [facility] (Rec: 03/26/22 09:01 [facility] [id number]) Physical Therapy Assessment Rehab Potential Rehabilitation Potential Good Evaluation Complexity Number of Personal Factors/Comorbidities 1-2 Number of Body Systems Impaired 4 or More Clinical Presentation at Evaluation Evolving Impairments Impairments Activity Tolerance,Balance, Coordination,Edema,Functional Activities,Functional Mobility ,Gait,Pain,Posture,ROM,Soft Tissue Mobility,Strength Goals activities Short Term Goal (STG) Pt will be able to stand as needed and walk as needed without pain inc greater than 2/10 STG Duration 05/16/22 Correction Officer Supervisor Goal (LTG) Pt iwll be able to return to running and agility as needed for PT and possible complications at her job along w/for fitness. LTG Duration 06/18/22 strength Short Term Goal (STG) Pt will be indep w/HEP STG Duration 05/15/22 Correction Officer Supervisor Goal (LTG) Pt will score 5/5 on all MMT of BLEs to show improved stability in order to do required activiteis for PT at work. LTG Duration 06/18/22 ROM Short Term Goal (STG) Pt will report no pain w/AROM into any plane of R ankle. STG Duration 05/16/22 Care Home Goal (LTG) Pt will have at least DF to 10 deg knee flex B and 5 deg knee ext B to improve ability for gait mechanics. LTG Duration 06/18/22 balance Care Home Goal (LTG) Pt will stand SLS for 30 sec on RLE w/o deviations or hip drop. LTG Duration 06/18/22 FAAM Impairment ADL 69/84; sports 7/28 Short Term Goal (STG) Pt will score at least 78 on ADL portion of FAAM scale to show improved functional ability. STG Duration 05/16/22 Correction Officer Supervisor Goal (LTG) Pt will score at least 28on sports portion of FAAM scale to show improved functional ability. LTG Duration 06/18 Assessment Summary Assessment Pt presents w/chronic R med ankle and foot pain after injuring her ankle where it gave out on gravel in September. She has cont to be unable to run, stand or walk for extended time d/t pain and swelling of R foot/ankle. She does have B compenstated supinated foot type w/arch flattening B. She has impaired ROM of R ankle likely d/t calf and plantar fascia tightness along w/joint immobility of R ankle. She would benefit from skilled PT to help her return to painfree daily activity along w/return to her typical fitness activities including her [place] PT regime without pain. Physical Therapy Plan Frequency and Duration Frequency of Treatment 1-2x/wk Duration of treatment (weeks) 12 Plan of Care Start Date 03/26/22 Plan of Care End Date 06/18/22 Therapeutic Interventions Therapeutic Interventions Balance Training,Gait Training ,Home Exercise Program,Joint Mobilizations,Manual Therapy, Neuromuscular Re-education, Orthotic/Prosthetic Management ,Patient/Caregiver Education, Self-Care/Home Management,Soft Tissue Mobilization,Taping, Therapeutic Activities, Therapeutic Exercises Modalities Cold Pack/Ice Massage,Electric Stimulation,Hot Packs, Infrared Therapy,Iontophoresis ,Ultrasound Other Therapeutic Interventions dexamethasone for ionto Next Visit Focus/Plan Next Note Type Treatment Note Next Visit Plan laser to med ankle, Possibly US plused, consider Ionto once POC returns, review exercises , give tband 4 way exercises, manual to R ankle mobility Plan of Care Dates Plan of Care Start Date 03/26/22 Plan of Care End Date 06/18/22 Electronically Signed by: Janice Milner, PT 03/26/22 0998 If you are in agreement with this Plan of Care, please return a signed and dated copy. I have reviewed this Plan of Care and certify that the skilled therapy services above are required to meet the patient?s needs. Physician Signature Date Printed Name and Credentials Clinical Instructor Signature Printed Name and Credentials
--- NOTE | 2022-04-12 13:36 | PT-OP ANOTE ---
pt called re: no show and message left. Message stated no show, next appt and no show policy.
--- NOTE | 2022-04-20 09:50 | PT.OTN ---
Current Diagnoses Pain in right ankle and joints of right foot (04/20/22) Difficulty in walking, not elsewhere classified (04/20/22) Unspecified lack of coordination (04/20/22) Weakness (04/20/22) Physical Therapy Treatment Note PT-OP-A Visit Information Start: 03/21/22 13:35 Freq: Status: Active Protocol: Document 04/20/22 09:06 [facility] (Rec: 04/20/22 09:54 [facility] [id number]) Out-Patient Physical Therapy Visit Information Visit Information Visit Type Treatment Note Visit Start Time 09:06 Visit Stop Time 09:50 Total Visit Minutes 44 Visit Number 2 Number of MACHINE TOOL REBUILDER Visits 1 PT-OP-B Current Condition Start: 03/21/22 13:35 Freq: Status: Active Protocol: Document 03/26/22 08:17 [facility] (Rec: 03/26/22 09:01 [facility] [id number]) Current Condition History of Current Condition Onset Date September Current Complaints R ankle History of Current Condition 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 It was a hard buckle and she is unsure which way ankle rolled. 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 PT is hard for her right now .S he is not an avid runner, more of a swimmer. Tried to run on it and about 1/2 mile in and she was unable to push through it. After that it was painful and swollen. She is more concerned if her plane goes down and she has to be able to run. Sometimes her ankle hurts randomly during the day and often takes ibuprfoen and uses brenda wrap. Pt reports she has a slight tear in R MCL. Calls herself fairly clumsy. Prior Treatments and Tests xray- no breaks Treatment Goals Patient/Caregiver Goals be able to run, do quick pivoting (agility for PT), walk long distance, back to being physical PT-OP-C Subjective Start: 03/21/22 13:35 Freq: Status: Active Protocol: Document 04/20/22 09:06 [facility] (Rec: 04/20/22 09:54 [facility] [id number]) OP-PT Subjective Patient Comments Patient Comments Pt reports getting better at calf raise better and unsure doing lunge correctly. No pain in calf at arrival. PT-OP-D Balance Start: 03/21/22 13:35 Freq: Status: Active Protocol: Document 03/26/22 08:17 [facility] (Rec: 03/26/22 09:01 [facility] [id number]) Balance Tests Single Limb Standing Single Limb- Right >30 sec deviations mult & opp hip drop Single Limb- Left >30 sec PT-OP-F Manual Assessment Start: 03/21/22 13:35 Freq: Status: Active Protocol: Document 03/26/22 08:17 [facility] (Rec: 03/26/22 09:01 [facility] [id number]) Manual Assessments Soft Tissue Assessment Soft Tissue Mobility Assessment tenderness to achilles, 1st MT , med arch, tib distally Joint Mobility Assessment Joint Mobility Assessment dec talus and tib post glide PT-OP-G Mobility & Gait Start: 03/21/22 13:35 Freq: Status: Active Protocol: Document 03/26/22 08:17 [facility] (Rec: 03/26/22 09:01 [facility] [id number]) OP Gait Assessment Comments Gait Comments dec push off RLE in walk and run PT-OP-K Range of Motion Start: 03/21/22 13:35 Freq: Status: Active Protocol: Document 03/26/22 08:17 [facility] (Rec: 03/26/22 09:01 [facility] [id number]) Ankle and Foot Goniometric Range of Motion Ankle and Foot Right Active Dorsiflexion with Knee Flexed 5 Dorsiflexion with Knee Extended 0 Plantarflexion 62 Inversion 30 Eversion 20 Comments pain w/eversion, PF, DF .5 cm navicular drop Left Active Dorsiflexion with Knee Flexed 6 Dorsiflexion with Knee Extended 2 Plantarflexion 59 Inversion 26 Eversion 30 PT-OP-L Special Tests Start: 03/21/22 13:35 Freq: Status: Active Protocol: Document 03/26/22 08:17 [facility] (Rec: 03/26/22 09:01 [facility] [id number]) Special Tests Foot/Ankle Special Tests Talor Tilt Test Results neg Anterior Draw Test Results neg PT-OP-M Strength Start: 03/21/22 13:35 Freq: Status: Active Protocol: Document 03/26/22 08:17 [facility] (Rec: 03/26/22 09:01 [facility] [id number]) Hip Strength Hip Manual Muscle Testing Right Flexion (L2) 5 Normal Extension (S1) 3+ Fair+ Abduction 4 Good External Rotation 4+ Good+ Internal Rotation 5 Normal Left Flexion (L2) 5 Normal Extension (S1) 3+ Fair+ Abduction 4+ Good+ External Rotation 5 Normal Internal Rotation 5 Normal Knee Strength Knee Manual Muscle Testing Right Flexion (S2) 5 Normal Extension (L3) 4+ Good+ Left Flexion (S2) 5 Normal Extension (L3) 5 Normal Ankle/Foot Strength Ankle and Foot Manual Muscle Testing Right Dorsiflexion (L4) 3+ Fair+ Plantarflexion (S1) 3+ Fair+ Inversion 4 Good Eversion (S1) 3+ Fair+ Comments 3 heel raises-pain Left Dorsiflexion (L4) 5 Normal Plantarflexion (S1) 5 Normal Inversion 5 Normal Eversion (S1) 5 Normal Comments 20 heel raises Toe Strength Toe Manual Muscle Testing Right Great Toe Flexion 4 Good Extension 4+ Good+ Comments pain w/flex Left Great Toe Flexion 5 Normal Extension 5 Normal PT-OP-Q Treatments Start: 03/21/22 13:35 Freq: Status: Active Protocol: Document 04/20/22 09:06 [facility] (Rec: 04/20/22 09:54 [facility] [id number]) Therapeutic Exercises Sitting Exercises arch lift Sitting Exercise Name added 4 way ankle Sitting Exercise Name added to HEP: PF/IV/ DV/ EV Side right Resistance TB #3 EV/ DF, #4 PF/IV Reps/Minutes 2x15 reps Comments cued con/eccentric return- good effort response Standing Exercises calf stretch Standing Exercise Name 1. gastroc 2. soleus 3. plantar fascia stretch Side bilateral Equipment Used better response heel off step Reps/Minutes 60 x2 Comments cued tall posturing, contact rail support- Other Exercises self stms Other Exercise Name calf, plantar fascia, achilles pin AP Side right Equipment Used tennis ball, foam roller Comments MF AP Manual Therapy Treatment Soft Tissue Mobilization calf, plantar fascia Body Location R Mobilization Type Rolling,Sustained Pressure, Other Intensity/Depth Moderate Body Position Sitting Comments manual and use foam roller, ball, self fingers w/ FM APs. Joint Mobilizations distal tibfib Joint R Direction AP talocrual Joint R Direction AP Taping heel taping Body Location R heel Treatment Focus decrease distal achilles distal pull Type of Tape Rendon Skin Inspection normal, intact Comments leukotaping, cover roll: fat pad taping, support distal achilles. PT-OP-T Assessment and Plan Start: 03/21/22 13:35 Freq: Status: Active Protocol: Document 04/20/22 09:06 [facility] (Rec: 04/20/22 09:54 [facility] [id number]) Physical Therapy Assessment Goals activities Short Term Goal (STG) Pt will be able to stand as needed and walk as needed without pain inc greater than 2/10 STG Duration 05/16/22 Laminator Preforms Goal (LTG) Pt iwll be able to return to running and agility as needed for PT and possible complications at her job along w/for fitness. LTG Duration 06/18/22 strength Short Term Goal (STG) Pt will be indep w/HEP STG Duration 05/15/22 Prison Goal (LTG) Pt will score 5/5 on all MMT of BLEs to show improved stability in order to do required activiteis for PT at work. LTG Duration 06/18/22 ROM Short Term Goal (STG) Pt will report no pain w/AROM into any plane of R ankle. STG Duration 05/16/22 Laminator Preforms Goal (LTG) Pt will have at least DF to 10 deg knee flex B and 5 deg knee ext B to improve ability for gait mechanics. LTG Duration 06/18/22 balance Prison Goal (LTG) Pt will stand SLS for 30 sec on RLE w/o deviations or hip drop. LTG Duration 06/18/22 FAAM Impairment ADL 69/84; sports 10/12 Short Term Goal (STG) Pt will score at least 78 on ADL portion of FAAM scale to show improved functional ability. STG Duration 05/16/22 Prison Goal (LTG) Pt will score at least 28on sports portion of FAAM scale to show improved functional ability. LTG Duration 06/18 Assessment Summary Assessment Pt good feedback response to 4 way ankle and arch lifts for HEP strengthening TB #3-4. Good understanding self massage calf, plantarfascia and use of hands. Pt report R heel fat pad taping and how can reapply self seated RLE over L knee. Remove if uncomfortable otherwise wear 2 -4 days if beneficial. Physical Therapy Plan Frequency and Duration Frequency of Treatment 1-2x/wk Duration of treatment (weeks) 12 Plan of Care Start Date 03/26/22 Plan of Care End Date 06/18/22 Therapeutic Interventions Therapeutic Interventions Balance Training,Gait Training ,Home Exercise Program,Joint Mobilizations,Manual Therapy, Neuromuscular Re-education, Orthotic/Prosthetic Management ,Patient/Caregiver Education, Self-Care/Home Management,Soft Tissue Mobilization,Taping, Therapeutic Activities, Therapeutic Exercises Modalities Cold Pack/Ice Massage,Electric Stimulation,Hot Packs, Infrared Therapy,Iontophoresis ,Ultrasound Other Therapeutic Interventions dexamethasone for ionto Next Visit Focus/Plan Next Note Type Treatment Note Next Visit Plan recheck HEP, manual and self massage last tx. POC: laser to med ankle, Possibly US plused, consider Ionto once POC returns, review exercises, manual to R ankle mobility
--- NOTE | 2022-04-30 14:34 | PT.OTN ---
Current Diagnoses Pain in right ankle and joints of right foot (04/30/22) Difficulty in walking, not elsewhere classified (04/30/22) Unspecified lack of coordination (04/30/22) Weakness (04/30/22) Physical Therapy Treatment Note PT-OP-A Visit Information Start: 03/21/22 13:35 Freq: Status: Active Protocol: Document 04/30/22 09:09 [facility] (Rec: 04/30/22 09:55 [facility] [id number]) Out-Patient Physical Therapy Visit Information Visit Information Visit Type Treatment Note Visit Start Time 09:10 Visit Stop Time 09:54 Total Visit Minutes 44 Visit Number 3 Number of POLE SHAVER Visits 2 PT-OP-B Current Condition Start: 03/21/22 13:35 Freq: Status: Active Protocol: Document 03/26/22 08:17 [facility] (Rec: 03/26/22 09:01 [facility] [id number]) Current Condition History of Current Condition Onset Date September Current Complaints R ankle History of Current Condition 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 It was a hard buckle and she is unsure which way ankle rolled. 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 PT is hard for her right now .S he is not an avid runner, more of a swimmer. Tried to run on it and about 1/2 mile in and she was unable to push through it. After that it was painful and swollen. She is more concerned if her plane goes down and she has to be able to run. Sometimes her ankle hurts randomly during the day and often takes ibuprfoen and uses brenda wrap. Pt reports she has a slight tear in R MCL. Calls herself fairly clumsy. Prior Treatments and Tests xray- no breaks Treatment Goals Patient/Caregiver Goals be able to run, do quick pivoting (agility for PT), walk long distance, back to being physical PT-OP-C Subjective Start: 03/21/22 13:35 Freq: Status: Active Protocol: Document 04/30/22 09:09 [facility] (Rec: 04/30/22 09:55 [facility] [id number]) OP-PT Subjective Patient Comments Patient Comments Pt noticed it hurts more if she's on her tippy toes. She thinks she overdid it since doing [place] [facility] too and she tried jump rope after swimming and it escalated quickly. She also tried jogging and had to stop after fifth step due to pain. Pain travels from R instep on toes to R inside ankle when not on toes. She's alternating heat and ice. She is self-massaging foot with dryer ball w/ nodes. Pt states she hasn't figured out how to do arch lift without toes yet . PT-OP-D Balance Start: 03/21/22 13:35 Freq: Status: Active Protocol: Document 03/26/22 08:17 [facility] (Rec: 03/26/22 09:01 [facility] [id number]) Balance Tests Single Limb Standing Single Limb- Right >30 sec deviations mult & opp hip drop Single Limb- Left >30 sec PT-OP-F Manual Assessment Start: 03/21/22 13:35 Freq: Status: Active Protocol: Document 03/26/22 08:17 [facility] (Rec: 03/26/22 09:01 [facility] [id number]) Manual Assessments Soft Tissue Assessment Soft Tissue Mobility Assessment tenderness to achilles, 1st MT , med arch, tib distally Joint Mobility Assessment Joint Mobility Assessment dec talus and tib post glide PT-OP-G Mobility & Gait Start: 03/21/22 13:35 Freq: Status: Active Protocol: Document 03/26/22 08:17 [facility] (Rec: 03/26/22 09:01 [facility] [id number]) OP Gait Assessment Comments Gait Comments dec push off RLE in walk and run PT-OP-K Range of Motion Start: 03/21/22 13:35 Freq: Status: Active Protocol: Document 03/26/22 08:17 [facility] (Rec: 03/26/22 09:01 [facility] [id number]) Ankle and Foot Goniometric Range of Motion Ankle and Foot Right Active Dorsiflexion with Knee Flexed 5 Dorsiflexion with Knee Extended 0 Plantarflexion 62 Inversion 30 Eversion 20 Comments pain w/eversion, PF, DF .5 cm navicular drop Left Active Dorsiflexion with Knee Flexed 6 Dorsiflexion with Knee Extended 2 Plantarflexion 59 Inversion 26 Eversion 30 PT-OP-L Special Tests Start: 03/21/22 13:35 Freq: Status: Active Protocol: Document 03/26/22 08:17 [facility] (Rec: 03/26/22 09:01 [facility] [id number]) Special Tests Foot/Ankle Special Tests Talor Tilt Test Results neg Anterior Draw Test Results neg PT-OP-M Strength Start: 03/21/22 13:35 Freq: Status: Active Protocol: Document 03/26/22 08:17 [facility] (Rec: 03/26/22 09:01 [facility] [id number]) Hip Strength Hip Manual Muscle Testing Right Flexion (L2) 5 Normal Extension (S1) 3+ Fair+ Abduction 4 Good External Rotation 4+ Good+ Internal Rotation 5 Normal Left Flexion (L2) 5 Normal Extension (S1) 3+ Fair+ Abduction 4+ Good+ External Rotation 5 Normal Internal Rotation 5 Normal Knee Strength Knee Manual Muscle Testing Right Flexion (S2) 5 Normal Extension (L3) 4+ Good+ Left Flexion (S2) 5 Normal Extension (L3) 5 Normal Ankle/Foot Strength Ankle and Foot Manual Muscle Testing Right Dorsiflexion (L4) 3+ Fair+ Plantarflexion (S1) 3+ Fair+ Inversion 4 Good Eversion (S1) 3+ Fair+ Comments 3 heel raises-pain Left Dorsiflexion (L4) 5 Normal Plantarflexion (S1) 5 Normal Inversion 5 Normal Eversion (S1) 5 Normal Comments 20 heel raises Toe Strength Toe Manual Muscle Testing Right Great Toe Flexion 4 Good Extension 4+ Good+ Comments pain w/flex Left Great Toe Flexion 5 Normal Extension 5 Normal PT-OP-Q Treatments Start: 03/21/22 13:35 Freq: Status: Active Protocol: Document 04/30/22 09:09 [facility] (Rec: 04/30/22 09:55 [facility] [id number]) Therapeutic Exercises Sitting Exercises arch lift Reps/Minutes 5' Comments tactile cues initially, then pt able to perform w/ repetition 4 way ankle Side right Resistance TB #4 Reps/Minutes 2x15 reps Comments vc eccentric control, pt self- progressed to #4 w/ all. Standing Exercises Hip flexor Standing Exercise Name 1. standing quad stretch 2. Hip flexor Comments 1. vc for knee alignment, 2. good form- added to HEP calf stretch Standing Exercise Name 1. gastroc 2. soleus 3. plantar fascia stretch Side bilateral Equipment Used better response heel off step Reps/Minutes 60 x2 Comments cued tall posturing, contact rail support Manual Therapy Treatment Taping heel taping Body Location R heel Treatment Focus decrease distal achilles distal pull Type of Tape Justice Skin Inspection normal, intact Comments leukotaping, cover roll: fat pad taping, support distal achilles. Self-Care/Home Management Treatment Education Patient Education Home Exercise Program,Pain Management,Safety Other Education Added hip flexor stretch w/ chair. Significant time spent discussing staying in pain- free range with pt expressing improved understanding by end of session. PT-OP-T Assessment and Plan Start: 03/21/22 13:35 Freq: Status: Active Protocol: Document 04/30/22 09:09 [facility] (Rec: 04/30/22 09:55 [facility] [id number]) Physical Therapy Assessment Impairments Impairments Activity Tolerance,Balance, Coordination,Edema,Functional Activities,Functional Mobility ,Gait,Pain,Posture,ROM,Soft Tissue Mobility,Strength Goals activities Short Term Goal (STG) Pt will be able to stand as needed and walk as needed without pain inc greater than 2/10 STG Duration 05/16/22 Skilled Nursing Goal (LTG) Pt iwll be able to return to running and agility as needed for PT and possible complications at her job along w/for fitness. LTG Duration 06/18/22 strength Short Term Goal (STG) Pt will be indep w/HEP STG Duration 05/15/22 Skilled Nursing Goal (LTG) Pt will score 5/5 on all MMT of BLEs to show improved stability in order to do required activiteis for PT at work. LTG Duration 06/18/22 ROM Short Term Goal (STG) Pt will report no pain w/AROM into any plane of R ankle. STG Duration 05/16/22 Skilled Nursing Goal (LTG) Pt will have at least DF to 10 deg knee flex B and 5 deg knee ext B to improve ability for gait mechanics. LTG Duration 06/18/22 balance Skilled Nursing Goal (LTG) Pt will stand SLS for 30 sec on RLE w/o deviations or hip drop. LTG Duration 06/18/22 FAAM Impairment ADL 69/84; sports 10/12 Short Term Goal (STG) Pt will score at least 78 on ADL portion of FAAM scale to show improved functional ability. STG Duration 05/16/22 Skilled Nursing Goal (LTG) Pt will score at least 28on sports portion of FAAM scale to show improved functional ability. LTG Duration 06/18 Assessment Summary Assessment Pt requires tactile cues for arch lifts but is able to perform independently with cueing and repetition. Significant time spent discussing staying in pain- free range with pt expressing improved understanding by end of session. Pt cued to slow pacing for controlled eccentric movement of 4-way ankle ex w/ Lvl4 Tb, and to switch back to Lvl3 Tb for EV/ DF if slower ex increases pain . Added hip flexor stretch w/ chair to replace standing quad stretch due to misalignment of knee and ankle discomfort with hold. Physical Therapy Plan Frequency and Duration Frequency of Treatment 1-2x/wk Duration of treatment (weeks) 12 Plan of Care Start Date 03/26/22 Plan of Care End Date 06/18/22 Therapeutic Interventions Therapeutic Interventions Balance Training,Gait Training ,Home Exercise Program,Joint Mobilizations,Manual Therapy, Neuromuscular Re-education, Orthotic/Prosthetic Management ,Patient/Caregiver Education, Self-Care/Home Management,Soft Tissue Mobilization,Taping, Therapeutic Activities, Therapeutic Exercises Modalities Cold Pack/Ice Massage,Electric Stimulation,Hot Packs, Infrared Therapy,Iontophoresis ,Ultrasound Other Therapeutic Interventions dexamethasone for ionto Next Visit Focus/Plan Next Note Type Treatment Note Next Visit Plan recheck HEP, manual and self massage last tx. POC: laser to med ankle, Possibly US plused, consider Ionto once POC returns, review exercises, manual to R ankle mobility
--- NOTE | 2022-05-08 14:06 | PT-OP ANOTE ---
DNS. Pt had called to say she was going to be late, but did not come by DNS time.
--- NOTE | 2022-06-25 11:05 | PT.OPDS ---
Current Diagnoses Pain in right ankle and joints of right foot (04/30/22) Difficulty in walking, not elsewhere classified (04/30/22) Unspecified lack of coordination (04/30/22) Weakness (04/30/22) Visit Care Team Role Provider Type [facility] Primary Care Provider Non-Staff Specialty: Medical Address: [address] [place] [address], [id number] Email: Attending Provider Family Provider Referring Provider Specialty: Address: Phone: Fax: Email: Visit Number Visit Number 3 Discharge Summary PT-OP-B Current Condition Start: 03/21/22 13:35 Freq: Status: Active Protocol: Document 03/26/22 08:17 [facility] (Rec: 03/26/22 09:01 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 It was a hard buckle and she is unsure which way ankle rolled. 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 PT is hard for her right now .S he is not an avid runner, more of a swimmer. Tried to run on it and about 1/2 mile in and she was unable to push through it. After that it was painful and swollen. She is more concerned if her plane goes down and she has to be able to run. Sometimes her ankle hurts randomly during the day and often takes ibuprfoen and uses brenda wrap. Pt reports she has a slight tear in R MCL. Calls herself fairly clumsy. Prior Treatments and Tests xray- no breaks Treatment Goals Patient/Caregiver Goals be able to run, do quick pivoting (agility for PT), walk long distance, back to being physical PT-OP-C Subjective Start: 03/21/22 13:35 Freq: Status: Active Protocol: Document 04/30/22 09:09 [facility] (Rec: 04/30/22 09:55 [facility] [id number]) OP-PT Subjective Patient Comments Patient Comments Pt noticed it hurts more if she's on her tippy toes. She thinks she overdid it since doing [place] [facility] too and she tried jump rope after swimming and it escalated quickly. She also tried jogging and had to stop after fifth step due to pain. Pain travels from R instep on toes to R inside ankle when not on toes. She's alternating heat and ice. She is self-massaging foot with dryer ball w/ nodes. Pt states she hasn't figured out how to do arch lift without toes yet . PT-OP-D Balance Start: 03/21/22 13:35 Freq: Status: Active Protocol: Document 03/26/22 08:17 [facility] (Rec: 03/26/22 09:01 [facility] [id number]) Balance Tests Single Limb Standing Single Limb- Right >30 sec deviations mult & opp hip drop Single Limb- Left >30 sec PT-OP-F Manual Assessment Start: 03/21/22 13:35 Freq: Status: Active Protocol: Document 03/26/22 08:17 [facility] (Rec: 03/26/22 09:01 [facility] [id number]) Manual Assessments Soft Tissue Assessment Soft Tissue Mobility Assessment tenderness to achilles, 1st MT , med arch, tib distally Joint Mobility Assessment Joint Mobility Assessment dec talus and tib post glide PT-OP-G Mobility & Gait Start: 03/21/22 13:35 Freq: Status: Active Protocol: Document 03/26/22 08:17 [facility] (Rec: 03/26/22 09:01 [facility] [id number]) OP Gait Assessment Comments Gait Comments dec push off RLE in walk and run PT-OP-K Range of Motion Start: 03/21/22 13:35 Freq: Status: Active Protocol: Document 03/26/22 08:17 [facility] (Rec: 03/26/22 09:01 [facility] [id number]) Ankle and Foot Goniometric Range of Motion Ankle and Foot Right Active Dorsiflexion with Knee Flexed 5 Dorsiflexion with Knee Extended 0 Plantarflexion 62 Inversion 30 Eversion 20 Comments pain w/eversion, PF, DF .5 cm navicular drop Left Active Dorsiflexion with Knee Flexed 6 Dorsiflexion with Knee Extended 2 Plantarflexion 59 Inversion 26 Eversion 30 PT-OP-L Special Tests Start: 03/21/22 13:35 Freq: Status: Active Protocol: Document 03/26/22 08:17 [facility] (Rec: 03/26/22 09:01 [facility] [id number]) Special Tests Foot/Ankle Special Tests Talor Tilt Test Results neg Anterior Draw Test Results neg PT-OP-M Strength Start: 03/21/22 13:35 Freq: Status: Active Protocol: Document 03/26/22 08:17 [facility] (Rec: 03/26/22 09:01 [facility] [id number]) Hip Strength Hip Manual Muscle Testing Right Flexion (L2) 5 Normal Extension (S1) 3+ Fair+ Abduction 4 Good External Rotation 4+ Good+ Internal Rotation 5 Normal Left Flexion (L2) 5 Normal Extension (S1) 3+ Fair+ Abduction 4+ Good+ External Rotation 5 Normal Internal Rotation 5 Normal Knee Strength Knee Manual Muscle Testing Right Flexion (S2) 5 Normal Extension (L3) 4+ Good+ Left Flexion (S2) 5 Normal Extension (L3) 5 Normal Ankle/Foot Strength Ankle and Foot Manual Muscle Testing Right Dorsiflexion (L4) 3+ Fair+ Plantarflexion (S1) 3+ Fair+ Inversion 4 Good Eversion (S1) 3+ Fair+ Comments 3 heel raises-pain Left Dorsiflexion (L4) 5 Normal Plantarflexion (S1) 5 Normal Inversion 5 Normal Eversion (S1) 5 Normal Comments 20 heel raises Toe Strength Toe Manual Muscle Testing Right Great Toe Flexion 4 Good Extension 4+ Good+ Comments pain w/flex Left Great Toe Flexion 5 Normal Extension 5 Normal PT-OP-T Assessment and Plan Start: 03/21/22 13:35 Freq: Status: Active Protocol: Document 06/25/22 11:04 [facility] (Rec: 06/25/22 11:05 [facility] [id number]) Physical Therapy Assessment Goals activities Short Term Goal (STG) Pt will be able to stand as needed and walk as needed without pain inc greater than 2/10 STG Duration 05/16/22 Chemical Strength Tester Goal (LTG) Pt iwll be able to return to running and agility as needed for PT and possible complications at her job along w/for fitness. LTG Duration 06/18/22 strength Short Term Goal (STG) Pt will be indep w/HEP STG Duration 05/15/22 Chemical Strength Tester Goal (LTG) Pt will score 5/5 on all MMT of BLEs to show improved stability in order to do required activiteis for PT at work. LTG Duration 06/18/22 ROM Short Term Goal (STG) Pt will report no pain w/AROM into any plane of R ankle. STG Duration 05/16/22 Chemical Strength Tester Goal (LTG) Pt will have at least DF to 10 deg knee flex B and 5 deg knee ext B to improve ability for gait mechanics. LTG Duration 06/18/22 balance Chemical Strength Tester Goal (LTG) Pt will stand SLS for 30 sec on RLE w/o deviations or hip drop. LTG Duration 06/18/22 FAAM Impairment ADL 69/84; sports 10/12 Short Term Goal (STG) Pt will score at least 78 on ADL portion of FAAM scale to show improved functional ability. STG Duration 05/16/22 Chemical Strength Tester Goal (LTG) Pt will score at least 28on sports portion of FAAM scale to show improved functional ability. LTG Duration 06/18 Assessment Summary Assessment Pt only came for IE and 2 treatment visits. POC is and auth is and pt did not get a new auth. DC d/t no longer attending PT Physical Therapy Plan Discharge Physical Therapy Discharge Reasons No Longer Attending PT
== END 2022-06-28 08:48 | disposition home or self-care (01) ==
LOC: PHYS 09:00
DX: M25.571 Pain in right ankle and joints of right foot (principal); R53.1 Weakness; R27.9 Unspecified lack of coordination; R26.2 Difficulty in walking, not elsewhere classified
CPT/HCPCS: 97110; 97140; 97162